=== PATIENT | female | born 1990 | race American Indian/Alaskan Native ===

== ENCOUNTER 2018-06-08 15:59 | Emergency (ER) | payer SELFPAY ==
--- NOTE | 2018-06-08 16:08 | Emergency Department Report ---
Blank Doc - Documentation Documentation: This is a 27-year-old female that presents with right knee pain. Patient stated that she fell today. Denies any othef complaints or trauma. This initial assessment diagnostic orders/clinical plan/treatment(s) is/are subject to change based on patient's health status, clinical progression and re- assessment by fellow clinical providers in the ED. Further treatment and workup at subsequent clinical providers discretion. Patient/guardians urged not to elope from ED s their condition may be serious if not clinically assessed and managed. Initial orders include: 1-Patient sent to [facility] for further evaluation and treatment. 2- xray ordered
[2018-06-08 16:11] VITALS: BP 143/80
--- NOTE | 2018-06-08 17:08 | XRay Report ---
FINAL REPORT EXAM: XR KNEE 3V RT HISTORY: right knee pain TECHNIQUE: Frontal, lateral, oblique views right knee Comparison: None FINDINGS: There is no evidence of fracture or subluxation. The joint spaces are maintained. The soft tissues are unremarkable. IMPRESSION: 1. No evidence of fracture or subluxation. If further imaging is required, MRI may be helpful.
--- NOTE | 2018-06-08 17:43 | Emergency Department Report ---
ED Lower Extremity HPI - General Chief Complaint: Extremity Injury, Lower Stated Complaint: KNEE PAIN Time Seen by Provider: 06/08/18 16:06 Source: patient Mode of arrival: Ambulatory Limitations: No Limitations - History of Present Illness Initial Comments: This is a 27-year-old female with no prior medical history who presents to ED complaining of right knee pain status post fall 20 minutes prior to arrival. Patient states she was walking when when she fell and hit her right knee on a branch. Patient states she is a able to catch her fall and injured her knee. She states the pain is worsened bleed on the right knee. Patient states it's difficult for her to walk due to pain. She denies any deformity, - Related Data Previous Rx's Medication Instructions Recorded Last Taken Type Ibuprofen [Motrin] 800 mg PO Q8HR #30 tablet 06/08/18 Unknown Rx Allergies Allergy/AdvReac Type Severity Reaction Status Date / Time No Known Allergies Allergy Unverified 06/08/18 16:11 ED Review of Systems ROS: Stated complaint: KNEE PAIN Other details as noted in HPI Comment: All other systems reviewed and negative ED Past Medical Hx - Past Medical History Previous Medical History?: No - Surgical History Past Surgical History?: No - Social History Smoking Status: Never Smoker Substance Use Type: None - Medications Home Medications: Home Medications Medication Instructions Recorded Confirmed Last Taken Type Ibuprofen [Motrin] 800 mg PO Q8HR #30 tablet 06/08/18 Unknown Rx ED Physical Exam - General Limitations: No Limitations General appearance: alert, in no apparent distress - Head Head exam: Present: atraumatic, normocephalic - Eye Eye exam: Present: normal appearance - ENT ENT exam: Present: mucous membranes moist - Neck Neck exam: Present: normal inspection - Respiratory Respiratory exam: Present: normal lung sounds bilaterally. Absent: respiratory distress - Cardiovascular Cardiovascular Exam: Present: regular rate, normal rhythm. Absent: systolic murmur, diastolic murmur, rubs, gallop - GI/Abdominal GI/Abdominal exam: Present: soft, normal bowel sounds - Extremities Exam Extremities exam: Present: normal inspection - Back Exam Back exam: Present: normal inspection - Neurological Exam Neurological exam: Present: alert, oriented X3 - Psychiatric Psychiatric exam: Present: normal affect, normal mood - Skin Skin exam: Present: warm, dry, intact, normal color. Absent: rash ED Course Vital Signs 06/08/18 16:09 Temperature 98.1 F Pulse Rate 78 Respiratory 16 Rate Blood Pressure 143/80 O2 Sat by Pulse 100 Oximetry ED Lower Extremity MDM - Radiology Data Radiology results: report reviewed, image reviewed FINAL REPORT EXAM: XR KNEE 3V RT HISTORY: right knee pain TECHNIQUE: Frontal, lateral, oblique views right knee Comparison: None FINDINGS: There is no evidence of fracture or subluxation. The joint spaces are maintained. The soft tissues are unremarkable. IMPRESSION: 1. No evidence of fracture or subluxation. If further imaging is required, MRI may be helpful. Transcribed By: ED Dictated By: ERNESTO PRATT MD Electronically Authenticated By: ERNESTO PRATT MD Signed Date/Time: 06/08/18 2571 - Medical Decision Making 27-year-old female presents with right knee injury. X-ray shows no acute finding. Discussed the patient follow up with orthopedics as necessary. Patient placed in a knee brace due to pain with walking. Patient was put in a knee immobilizer prior to discharge. Crutches were given as well. Discussed x-ray findings the patient. Discussed the patient wanted to follow up with orthopedic and possibly needs an MRI. Critical care attestation.: If time is entered above; I have spent that time in minutes in the direct care of this critically ill patient, excluding procedure time. ED Disposition Clinical Impression: Knee pain, Injury of ligament of right knee Disposition: DC-01 TO HOME OR SELFCARE Is pt being admited?: No Does the pt Need Aspirin: No Condition: Stable Instructions: Anterior Cruciate Ligament Injury (ED), Arthralgia (ED), Knee Exercises (GEN), Knee Immobilizer (ED) Additional Instructions: Make sure to follow up with the orthopedics as discussed. Take all your medications as you've been prescribed. If you have any worsening symptoms or develop new symptoms please return to ED immediately. Prescriptions: Ibuprofen [Motrin] 800 mg PO Q8HR #30 tablet Referrals: JOAN SAENZ MD [Primary Care Provider] - 3-5 Days MATTY GONZALES MD [Staff Physician] - 3-5 Days Forms: Work/School Release Form(ED) Time of Disposition: 17:42
[2018-06-08] MEDS ORDERED: NORCO 5/325 PO ONE (18:08)
== END 2018-06-08 18:40 | disposition home or self-care (01) ==
LOC: ED 15:59
DX: S89.91XA Unspecified injury of right lower leg, initial encounter (principal); W19.XXXA Unspecified fall, initial encounter; Y93.01 Activity, walking, marching and hiking; Y92.89 Other specified places as the place of occurrence of the external cause; Y99.8 Other external cause status